=== PATIENT | male | born 1955 | race Caucasian/White ===

== ENCOUNTER 2023-11-28 12:08 | Inpatient (IN) | payer MEDICARE, OTHER ==
[~2023-11-28] VITALS: Ht 188 cm; Wt 96.1 kg
[2023-11-28 13:25] LABS: Basophils # (auto) 0.1 10 ^3/uL (0-0.2); Basophils % (auto) 0.7 % (0.0-2.0); Eosinophils # (auto) 0 10 ^3/uL (0-0.8); Eosinophils % (auto) 0.3 % (0.0-7.0); Monocytes # (auto) 0.6 10 ^3/uL (0-1.3)
[2023-11-28 13:26] LABS: Hematocrit 18.7 % (41.0-53.0); Lymphocytes # (auto) 1.3 10 ^3/uL (0.4-5.4); Lymphocytes % (auto) 15.2 % (10.0-50.0); Mean Corpuscular Hemoglobin 15.2 pg (28.0-32.0); Mean Corpuscular Hgb Conc. 27.1 g/dL (32.0-36.0); Monocytes % (auto) 6.7 % (0.0-12.0); Neutrophils # (auto) 6.9 10 ^3/uL (1.6-8.6); Neutrophils % (auto) 77.1 % (37.0-80.0); Nucleated Red Blood Cells % 0.6 %; Red Blood Cells 3.33 10^6/uL (4.5-5.90); White Blood Cell 8.9 10^3/uL (4.4-10.8)
[2023-11-28 13:38] LABS: Red Cell Distribution Width 21.2 % (11.8-14.3)
[2023-11-28 13:45] LABS: Alanine Aminotransferase 11 U/L (7-40); Alkaline Phosphatase 73 U/L (46-116); Anion Gap 4 (5-15); Aspartate Aminotransferase 14 U/L (13-40); BUN/Creatinine Ratio 36.9 (10.0-20.0); Blood Urea Nitrogen 45 mg/dL (9-23); Carbon Dioxide 27 mmol/L (20-30); Chloride 109 mmol/L (98-107); Glucose 168 mg/dL (74-106); Hemoglobin 5.1 g/dL (13.5-17.5); Potassium 4.3 mmol/L (3.5-5.1); Sodium 140 mmol/L (136-145)
[2023-11-28 13:46] LABS: Total Protein 5.8 g/dL (5.7-8.2)
[2023-11-28] MEDS: PANTOPRAZOLE 40 MG/10 ML VIAL INJ IV ONE (14:45)
[2023-11-28] MEDS ORDERED: METOCLOPRAMIDE HCL 5MG/ml INJ 2ml VIAL IV PRN (14:45)
[2023-11-28] MEDS ORDERED: NITROGLYCERIN 0.4 MG SL TAB SL PRN (14:45)
[2023-11-28] MEDS ORDERED: MORPHINE SULFATE INJ 2 MG/ml SYRG IV PRN ×2 (14:45)
[2023-11-28] MEDS ORDERED: LORazepam 0.5 MG TAB PO PRN (14:45)
[2023-11-28 15:02] LABS: Anisocytosis Slight; Hypochromia Marked; Platelet Estimate Adequate
[2023-11-28 15:03] LABS: Ovalocytes FEW
[2023-11-28 16:32] LABS: Magnesium 1.9 mg/dL (1.6-2.6)
[2023-11-28 16:39] LABS: Thyroid Stimulating Hormone 0.5 uIU/mL (0.55-4.78)
[2023-11-28 16:44] LABS: Phosphorus 3.3 mg/dL (2.4-5.1)
[2023-11-28 17:07] LABS: INR 1.13 (0.9-1.15); Partial Thromboplastin Time 26.8 SEC (24.5-34.5); Prothrombin Time 11.8 sec (9.3-11.8)
[2023-11-28 17:25] LABS: Folate (Folic Acid) 16.52 ng/mL (>5.38)
[2023-11-28 18:45] LABS: Hematocrit 20.3 % (41.0-53.0)
[2023-11-28 18:54] LABS: Hemoglobin 5.5 g/dL (13.5-17.5)
[2023-11-28] MEDS ORDERED: DEXTROSE (50%) 50ML SYRG IV PRN (20:15)
[2023-11-28 20:50] LABS: Free T3 2.78 pg/mL (2.3-4.2); Free T4 (Free Thyroxine) 1.23 ng/dL (0.89-1.76)
[2023-11-28] MEDS: SODIUM CHLORIDE 0.9% 1,000 ML IV SCH (21:47)
[2023-11-28 21:48] VITALS: O2SAT 100
[2023-11-28] MEDS: diphenhdrAMINE HCL 12.5 MG/5 ML UD PO ONE (21:52)
[2023-11-28] MEDS: diphenhdrAMINE HCL 25 MG CAP PO ONE (21:52)
[2023-11-28] MEDS: ACCU-CHEK COMFORT CURVE STRIP VI SCH (22:00)
[2023-11-28 23:40] VITALS: PULSE 99; O2SAT 95
[2023-11-28] MEDS: PANTOPRAZOLE 40 MG/10 ML VIAL INJ IV SCH (23:51)
[2023-11-28] MEDS: InsuLIN REG 1unit/0.01ml Soln (100units/ml) SC SCH (23:53)
[2023-11-29] VITALS (17 sets, daily range): BP systolic 96–132; BP diastolic 45–81; PULSE 84–100; RESP 16–20; TEMP 97.9–99; O2SAT 92–98
[2023-11-29 09:55] LABS: Monocytes # (auto) 0.6 10 ^3/uL (0-1.3)
[2023-11-29 09:57] LABS: Basophils # (auto) 0.1 10 ^3/uL (0-0.2); Basophils % (auto) 0.8 % (0.0-2.0); Eosinophils # (auto) 0.1 10 ^3/uL (0-0.8); Eosinophils % (auto) 0.8 % (0.0-7.0); Lymphocytes # (auto) 1.3 10 ^3/uL (0.4-5.4); Lymphocytes % (auto) 15.9 % (10.0-50.0); Mean Corpuscular Hemoglobin 17.8 pg (28.0-32.0); Mean Corpuscular Hgb Conc. 29.1 g/dL (32.0-36.0); Mean Corpuscular Volume 61.1 fL (80.0-100.0); Monocytes % (auto) 6.5 % (0.0-12.0); Neutrophils # (auto) 6.4 10 ^3/uL (1.6-8.6); Nucleated Red Blood Cells % 0.4 %; Red Blood Cells 3.61 10^6/uL (4.5-5.90); White Blood Cell 8.5 10^3/uL (4.4-10.8)
[2023-11-29 09:59] LABS: Red Cell Distribution Width 27.1 % (11.8-14.3)
[2023-11-29 10:00] LABS: Hemoglobin 6.4 g/dL (13.5-17.5)
[2023-11-29 10:14] LABS: Alanine Aminotransferase 10 U/L (7-40); Albumin 3.8 g/dL (3.2-4.8); Alkaline Phosphatase 66 U/L (46-116); Anion Gap 8 (5-15); Aspartate Aminotransferase 13 U/L (13-40); BUN/Creatinine Ratio 27.8 (10.0-20.0); Calcium 9.1 mg/dL (8.5-10.1); Carbon Dioxide 23 mmol/L (20-30); Chloride 109 mmol/L (98-107); Glucose 158 mg/dL (74-106); Potassium 4.2 mmol/L (3.5-5.1); Sodium 140 mmol/L (136-145)
[2023-11-29 10:15] LABS: Bilirubin, Total 1.3 mg/dL (0.2-1.0); Creatine Kinase IFCC 129 U/L (46-171); Phosphorus 3.2 mg/dL (2.4-5.1); Total Protein 5.5 g/dL (5.7-8.2)
[2023-11-29 10:32] LABS: Blood Urea Nitrogen 30 mg/dL (9-23)
[2023-11-29 10:44] LABS: Magnesium 1.7 mg/dL (1.6-2.6)
[2023-11-29] MEDS: IOHEXOL 300 MG/ML 100ML BOTTLE IJ ONE (18:22)
[2023-11-29 23:09] LABS: Urine Bacteria None Seen /hpf (None Seen)
[2023-11-29 23:27] LABS: Amphetamine Screen, Urine Neg (NEGATIVE)
[2023-11-29 23:28] LABS: Barbiturate Scree,Urine Neg (NEGATIVE); Benzodiazephine Screen, Urine Neg (NEGATIVE); Cannabinoid Screen, Urine Neg (NEGATIVE); Cocaine Screen, Urine Neg (NEGATIVE); Opiate Scree,Urine Pos (NEGATIVE); Phencyclidine Screen, Urine Neg (NEGATIVE)
[2023-11-29 23:54] LABS: Urine Blood 3+ /uL (Negative); Urine Clarity Turbid (Clear); Urine Color Colorless (Yellow); Urine Protein, UAD 1+ (Negative); Urine Specific Gravity 1.025 (1.001-1.035); Urine Urobilinogen Normal (Negative); Urine WBC 85 /hpf (0 - 3); Urine WBC Clumps PRESENT /hpf (None Seen); Urine pH 5.5 (5.0-9.0)
[2023-11-30] VITALS (8 sets, daily range): BP systolic 110–138; BP diastolic 33–71; PULSE 66–90; RESP 17–21; TEMP 97.3–98.5; O2SAT 91–97
[2023-11-30] MEDS ORDERED: CHOL20007 PO (02:30)
[2023-11-30] MEDS ORDERED: METO25TA5 PO (02:30)
[2023-11-30] MEDS ORDERED: GLIP10TA9 PO (02:30)
[2023-11-30] MEDS ORDERED: GABA-339 PO (02:30)
[2023-11-30] MEDS ORDERED: APIX5TAB PO (02:30)
[2023-11-30] MEDS ORDERED: ROSU10TA16 PO (02:30)
[2023-11-30] MEDS ORDERED: METF-370 PO ×2 (02:30)
[2023-11-30] MEDS ORDERED: HYDR25TA4 PO (02:30)
[2023-11-30] MEDS ORDERED: LISI-275 PO (02:30)
[2023-11-30] MEDS ORDERED: CETI10TA2 PO (02:30)
[2023-11-30 06:16] LABS: Basophils # (auto) 0.1 10 ^3/uL (0-0.2); Eosinophils % (auto) 0.6 % (0.0-7.0); Monocytes # (auto) 0.6 10 ^3/uL (0-1.3)
[2023-11-30 06:20] LABS: Basophils % (auto) 0.8 % (0.0-2.0); Eosinophils # (auto) 0.1 10 ^3/uL (0-0.8); Hemoglobin 7.5 g/dL (13.5-17.5); Lymphocytes # (auto) 1.4 10 ^3/uL (0.4-5.4); Lymphocytes % (auto) 17.8 % (10.0-50.0); Mean Corpuscular Hemoglobin 18.6 pg (28.0-32.0); Mean Corpuscular Volume 61.9 fL (80.0-100.0); Monocytes % (auto) 7.2 % (0.0-12.0); Neutrophils % (auto) 73.6 % (37.0-80.0); Nucleated Red Blood Cells % 0.6 %; Red Blood Cells 4.04 10^6/uL (4.5-5.90); White Blood Cell 8.2 10^3/uL (4.4-10.8)
[2023-11-30 06:24] LABS: Red Cell Distribution Width 29.3 % (11.8-14.3)
[2023-11-30 06:32] LABS: Albumin 3.7 g/dL (3.2-4.8); Alkaline Phosphatase 65 U/L (46-116); Anion Gap 4 (5-15); Aspartate Aminotransferase < 8 U/L (13-40); BUN/Creatinine Ratio 18.6 (10.0-20.0); Blood Urea Nitrogen 19 mg/dL (9-23); Calcium 9.2 mg/dL (8.7-10.4); Carbon Dioxide 26 mmol/L (20-30); Chloride 110 mmol/L (98-107); Glucose 135 mg/dL (74-106); Magnesium 1.6 mg/dL (1.6-2.6); Potassium 3.8 mmol/L (3.5-5.1); Sodium 140 mmol/L (136-145)
[2023-11-30 06:33] LABS: Bilirubin, Total 1.7 mg/dL (0.2-1.0); Total Protein 5.7 g/dL (5.7-8.2)
[2023-11-30 06:34] LABS: Alanine Aminotransferase < 9 U/L (7-40)
[2023-11-30 06:35] LABS: INR 1.16 (0.9-1.15); Partial Thromboplastin Time 30.5 SEC (24.5-34.5); Prothrombin Time 12.1 sec (9.3-11.8)
[2023-11-30] MEDS ORDERED: fentaNYL CITRATE 100 MCG/2 ML VL ONE (08:36)
[2023-11-30] MEDS ORDERED: LIDOCAINE VISCOUS 2% 15ML UD ONE (08:36)
[2023-11-30] MEDS ORDERED: SODIUM CHLORIDE LOCK 10 ML ONE (08:36)
[2023-11-30] MEDS ORDERED: MIDAZOLAM HCL 5 MG/ML-1ML VIAL ONE (08:36)
[2023-11-30] MEDS ORDERED: diphenhdrAMINE HCL 50 MG/1 ML VL ONE (08:36)
[2023-11-30 10:54] LABS: Anisocytosis Marked; Platelet Estimate Adequate
[2023-11-30 10:55] LABS: Hypochromia Marked; Ovalocytes MANY; Tear Drop Cells FEW
[2023-11-30] MEDS: cefTRIAXone 1GM/50ML D5W 50 ML IV ONE (18:43)
[2023-11-30] MEDS: metroNIDAZOLE 500MG/100ML 100 ML IV ONE (18:55)
[2023-11-30] MEDS: metroNIDAZOLE 500MG/100ML 100 ML IV SCH (20:56)
[2023-11-30] MEDS: ACETAMINOPHEN 325 MG TAB PO PRN (22:30)
[2023-12-01] VITALS (8 sets, daily range): BP systolic 120–159; BP diastolic 57–75; PULSE 77–94; RESP 16–19; TEMP 97.3–98; O2SAT 19–98
[2023-12-01 06:48] LABS: Basophils # (auto) 0.1 10 ^3/uL (0-0.2); Eosinophils # (auto) 0.1 10 ^3/uL (0-0.8); Hemoglobin 7.9 g/dL (13.5-17.5); Lymphocytes # (auto) 1.5 10 ^3/uL (0.4-5.4); Monocytes # (auto) 0.4 10 ^3/uL (0-1.3); White Blood Cell 6.2 10^3/uL (4.4-10.8)
[2023-12-01 06:51] LABS: Basophils % (auto) 1.7 % (0.0-2.0); Eosinophils % (auto) 1.8 % (0.0-7.0); Hematocrit 27.5 % (41.0-53.0); Lymphocytes % (auto) 24.5 % (10.0-50.0); Mean Corpuscular Hemoglobin 18.4 pg (28.0-32.0); Mean Corpuscular Hgb Conc. 28.7 g/dL (32.0-36.0); Monocytes % (auto) 6.4 % (0.0-12.0); Neutrophils # (auto) 4.1 10 ^3/uL (1.6-8.6); Neutrophils % (auto) 65.6 % (37.0-80.0); Nucleated Red Blood Cells % 0.6 %
[2023-12-01 06:53] LABS: Red Cell Distribution Width 29.2 % (11.8-14.3)
[2023-12-01 07:11] LABS: Albumin 3.9 g/dL (3.2-4.8); Alkaline Phosphatase 68 U/L (46-116); Anion Gap 9 (5-15); Aspartate Aminotransferase 13 U/L (13-40); BUN/Creatinine Ratio 14.8 (10.0-20.0); Bilirubin, Total 0.8 mg/dL (0.2-1.0); Blood Urea Nitrogen 16 mg/dL (9-23); Calcium 9.2 mg/dL (8.5-10.1); Carbon Dioxide 23 mmol/L (20-30); Chloride 110 mmol/L (98-107); Glucose 141 mg/dL (74-106); Phosphorus 4.2 mg/dL (2.4-5.1); Potassium 4.1 mmol/L (3.5-5.1); Sodium 142 mmol/L (136-145); Total Protein 5.8 g/dL (5.7-8.2)
[2023-12-01 07:13] LABS: Alanine Aminotransferase < 9 U/L (7-40)
[2023-12-01 07:48] LABS: Lipase 28 U/L (12-53)
[2023-12-01 07:49] LABS: Magnesium 1.7 mg/dL (1.6-2.6)
[2023-12-01 08:06] LABS: PSA Free 0.35 ng/mL; Prostate Specific Antigen 1.5 ng/mL (0.0-4.0)
[2023-12-01 08:10] LABS: Anisocytosis Moderate
[2023-12-01 08:11] LABS: Hypochromia Moderate; Ovalocytes FEW; Platelet Estimate Adequate; Tear Drop Cells FEW
[2023-12-01] MEDS: cefTRIAXone 1GM/50ML D5W 50 ML IV SCH (09:18)
[2023-12-01] MEDS: IRON SUCROSE COMPLEX 100 ML IV SCH (11:17)
[2023-12-02] VITALS (8 sets, daily range): BP systolic 115–141; BP diastolic 50–71; PULSE 51–88; RESP 17–18; TEMP 97.6–98.3; O2SAT 93–98
[2023-12-02 07:33] LABS: Eosinophils # (auto) 0.1 10 ^3/uL (0-0.8); Hemoglobin 7.3 g/dL (13.5-17.5); Monocytes # (auto) 0.4 10 ^3/uL (0-1.3); Nucleated Red Blood Cells % 0.3 %
[2023-12-02 07:37] LABS: Basophils # (auto) 0.1 10 ^3/uL (0-0.2); Eosinophils % (auto) 1.5 % (0.0-7.0); Hematocrit 24.7 % (41.0-53.0); Lymphocytes % (auto) 17.2 % (10.0-50.0); Mean Corpuscular Hemoglobin 18.6 pg (28.0-32.0); Mean Corpuscular Hgb Conc. 29.7 g/dL (32.0-36.0); Mean Corpuscular Volume 62.6 fL (80.0-100.0); Monocytes % (auto) 6.9 % (0.0-12.0); Neutrophils # (auto) 4.4 10 ^3/uL (1.6-8.6); Neutrophils % (auto) 73.4 % (37.0-80.0); Red Blood Cells 3.95 10^6/uL (4.5-5.90)
[2023-12-02 07:48] LABS: Albumin 3.4 g/dL (3.2-4.8); Alkaline Phosphatase 61 U/L (46-116); Anion Gap 9 (5-15); Aspartate Aminotransferase 8 U/L (13-40); BUN/Creatinine Ratio 16.3 (10.0-20.0); Bilirubin, Total 0.6 mg/dL (0.2-1.0); Blood Urea Nitrogen 16 mg/dL (9-23); Carbon Dioxide 24 mmol/L (20-30); Chloride 110 mmol/L (98-107); Glucose 169 mg/dL (74-106); Potassium 3.9 mmol/L (3.5-5.1); Sodium 143 mmol/L (136-145); Total Protein 5.1 g/dL (5.7-8.2)
[2023-12-02 07:51] LABS: Alanine Aminotransferase < 9 U/L (7-40)
[2023-12-02 07:52] LABS: Red Cell Distribution Width 29.7 % (11.8-14.3)
[2023-12-02 08:52] LABS: Anisocytosis Moderate; Hypochromia Moderate; Ovalocytes FEW; Platelet Estimate Adequate; Tear Drop Cells FEW
[2023-12-02] MEDS: LACTULOSE 20Gm/30ML SOLN PO SCH (13:17)
[2023-12-02] MEDS: FUROSEMIDE 40 MG/4 ML VIAL IV SCH (13:17)
[2023-12-03] VITALS (10 sets, daily range): BP systolic 116–134; BP diastolic 47–66; PULSE 78–93; RESP 16–20; TEMP 97.6–98.5; O2SAT 94–97
[2023-12-03 07:01] LABS: Eosinophils # (auto) 0.1 10 ^3/uL (0-0.8); Hemoglobin 7.6 g/dL (13.5-17.5); Lymphocytes # (auto) 1.5 10 ^3/uL (0.4-5.4); Nucleated Red Blood Cells % 0.2 %
[2023-12-03 07:03] LABS: Basophils # (auto) 0.1 10 ^3/uL (0-0.2); Eosinophils % (auto) 1.4 % (0.0-7.0); Hematocrit 26.1 % (41.0-53.0); Lymphocytes % (auto) 21.7 % (10.0-50.0); Mean Corpuscular Hemoglobin 18.6 pg (28.0-32.0); Mean Corpuscular Hgb Conc. 29.3 g/dL (32.0-36.0); Mean Corpuscular Volume 63.4 fL (80.0-100.0); Monocytes # (auto) 0.5 10 ^3/uL (0-1.3); Monocytes % (auto) 7.5 % (0.0-12.0); Neutrophils # (auto) 4.9 10 ^3/uL (1.6-8.6); Neutrophils % (auto) 68.4 % (37.0-80.0); Red Blood Cells 4.12 10^6/uL (4.5-5.90); Red Cell Distribution Width 30.1 % (11.8-14.3); White Blood Cell 7.1 10^3/uL (4.4-10.8)
[2023-12-03 07:42] LABS: Alanine Aminotransferase < 9 U/L (7-40); Albumin 3.6 g/dL (3.2-4.8); Alkaline Phosphatase 61 U/L (46-116); Anion Gap 9 (5-15); Aspartate Aminotransferase 9 U/L (13-40); BUN/Creatinine Ratio 14.3 (10.0-20.0); Bilirubin, Total 0.6 mg/dL (0.2-1.0); Blood Urea Nitrogen 14 mg/dL (9-23); Calcium 9.2 mg/dL (8.5-10.1); Carbon Dioxide 25 mmol/L (20-30); Chloride 108 mmol/L (98-107); Glucose 143 mg/dL (74-106); Potassium 3.7 mmol/L (3.5-5.1); Sodium 142 mmol/L (136-145); Total Protein 5.5 g/dL (5.7-8.2)
[2023-12-03] MEDS: FUROSEMIDE 40 MG/4 ML VIAL IV ONE (12:06)
[2023-12-03] MEDS: FUROSEMIDE 40 MG/4 ML VIAL IV SCH (18:04)
[2023-12-04 01:00] VITALS: BP 106/48; PULSE 71; RESP 20; TEMP 97.6; O2SAT 100
[2023-12-04 05:00] VITALS: BP 124/53; PULSE 73; RESP 20; TEMP 98.6; O2SAT 95
[2023-12-04 07:26] VITALS: BP 124/53
[2023-12-04 08:00] VITALS: BP 124/59; PULSE 81; PULSE 86; RESP 18; TEMP 97.7; O2SAT 93; O2SAT 95
[2023-12-04] MEDS ORDERED: PANT40T PO (09:30)
[2023-12-04] MEDS ORDERED: FURO20TA3 PO (09:38)
[2023-12-04] MEDS ORDERED: FUROSEMIDE 40 MG/4 ML VIAL IV SCH (10:00)
[2023-12-05] MEDS ORDERED: ACETAMINOPHEN 500 MG TAB PO ONE (15:00)
== END 2023-12-04 10:42 | disposition short-term general hospital (02) | DRG 687 ==
LOC: EDBD 12:08 → EDSEX 12:08 → ER 12:08 → TELE 14:53 → TELE-WESTW 23:41 → WEST WING 12-03 09:59
PROVIDERS: ADMIT Internal Medicine; ATTEND Emergency Medicine
PROC: 30233N1 Transfusion of Nonautologous Red Blood Cells into Peripheral Vein, Percutaneous Approach (ICD-10-PCS; principal; 2023-11-29)
DX: C67.4 Malignant neoplasm of posterior wall of bladder (principal); D62 Acute posthemorrhagic anemia; K92.2 Gastrointestinal hemorrhage, unspecified; K80.60 Calculus of gallbladder and bile duct with cholecystitis, unspecified, without obstruction; M62.82 Rhabdomyolysis; I10 Essential (primary) hypertension; K76.89 Other specified diseases of liver; N40.0 Benign prostatic hyperplasia without lower urinary tract symptoms; N28.1 Cyst of kidney, acquired; I70.90 Unspecified atherosclerosis; E78.5 Hyperlipidemia, unspecified; E11.42 Type 2 diabetes mellitus with diabetic polyneuropathy; Z53.29 Procedure and treatment not carried out because of patient's decision for other reasons; Z83.3 Family history of diabetes mellitus; Z82.49 Family history of ischemic heart disease and other diseases of the circulatory system; Z86.718 Personal history of other venous thrombosis and embolism; Z87.891 Personal history of nicotine dependence
CPT/HCPCS: 36415; 70450; 71045; 71046; 74178; 74181; 76705; 80053; 80061; 80307; 81001; 82140; 82306; 82550; 82607; 82728; 82746; 82962; 83036; 83540; 83605; 83615; 83690; 83735; 83880; 84100; 84154; 84439; 84443; 84481; 84484; 85014; 85018; 85025; 85045; 85610; 85730; 86850; 86900; 86901; 86920; 87040; 93005; 93306; 93970; C9113; G0378; J1756; J1815; J2250; J3490

== ENCOUNTER 2024-03-06 20:29 | Emergency (ER) | payer MEDICARE ==
[~2024-03-06] VITALS: Ht 182.9 cm; Wt 90.9 kg
[~2024-03-06 20:29] MED LIST: CETI10TA2 PO; CHOL20007 PO; FURO20TA3 PO; GABA-339 PO; GLIP10TA9 PO; HYDR25TA4 PO; LISI-275 PO; METF-370 PO; METO25TA5 PO; PANT40T PO; ROSU10TA16 PO
[2024-03-07 01:54] VITALS: BP 121/57; PULSE 87; RESP 18; TEMP 97.4; O2SAT 97
== END 2024-03-07 01:57 | disposition home or self-care (01) ==
LOC: ER 20:29 → EDBD 20:29 → ER 03-07 01:57
DX: N39.0 Urinary tract infection, site not specified (principal); R10.2 Pelvic and perineal pain; N48.29 Other inflammatory disorders of penis; E11.9 Type 2 diabetes mellitus without complications; I10 Essential (primary) hypertension
CPT/HCPCS: 51702